=== PATIENT | female | born 1995 | race Caucasian/White ===

== ENCOUNTER 2020-06-12 09:56 | Outpatient (NON) | payer OTHER, SELFPAY | END 2020-06-12 09:57 | PROVIDERS: PCP Family Medicine; Visit Provider Family Medicine | DX: R30.0 Dysuria (principal) | CPT/HCPCS: 87077; 87086; 87088 ==

== ENCOUNTER 2022-10-09 13:14 | Outpatient (CLI) | payer OTHER, SELFPAY ==
[2022-10-13 12:33] LABS: Rubella IgG Antibody 1.51 Index
[2022-10-13 13:55] LABS: Mumps Virus IgG Antibody 9.04 AU/mL
== END 2022-10-09 13:15 | disposition home or self-care (01) ==
LOC: CHSLAB 13:16
PROVIDERS: PCP Family Medicine; Visit Provider Nurse Practitioner Family
DX: Z02.1 Encounter for pre-employment examination (principal)
CPT/HCPCS: 36415; 86480; 86735; 86762

== ENCOUNTER 2022-10-13 14:33 | Outpatient (CLI) | payer OTHER, SELFPAY ==
[2022-10-15 13:46] LABS: TB Skin Test Erythema 0 mm; TB Skin Test Induration 0 mm (0-10); TB Skin Test Interpretation Negative (Negative); TB Skin Test Site Left Arm
== END 2022-10-13 14:34 | disposition home or self-care (01) ==
LOC: CHSLAB 14:35
PROVIDERS: PCP Nurse Practitioner Family; Visit Provider Nurse Practitioner Family
DX: Z02.1 Encounter for pre-employment examination (principal)
CPT/HCPCS: 36415; 86580

== ENCOUNTER 2023-10-28 10:08 | Outpatient (CLI) | payer OTHER, SELFPAY ==
[2023-11-01 07:33] LABS: TB Skin Test Erythema 5 mm; TB Skin Test Induration 0 mm (0-10); TB Skin Test Interpretation Negative (Negative); TB Skin Test Site Left Arm
== END 2023-10-28 10:09 | disposition home or self-care (01) ==
LOC: CHSLAB 10:10
PROVIDERS: PCP Family Medicine; Visit Provider Emergency Medicine
DX: Z02.0 Encounter for examination for admission to educational institution (principal)
CPT/HCPCS: 36415; 86580